=== PATIENT | female | born 1970 | race Two or more races ===

== ENCOUNTER 2016-06-24 20:35 | Emergency (ER) | payer SELFPAY ==
[2016-06-24 20:44] VITALS: BP 128/78; PULSE 80; TEMP 98.4; BMI 22.4
[2016-06-24] MEDS ORDERED: predniSONE 20 MG TABLET (UD) ONE (21:14)
[2016-06-24] MEDS: predniSONE 20 MG TABLET (UD) PO ONE (21:15)
--- NOTE | 2016-06-24 21:15 | PDOC ---
History of Present Illness - General Chief Complaint: Allergic Reaction Stated Complaint: ALLERGIC RX Time Seen by Provider: 06/24/16 20:46 History Source: Patient - History of Present Illness Timing/Duration: reports: other Location: reports: other (trunk and lower exts) Respiratory Risk Factors: reports: no cause identified Past History - Past Medical History Allergies/Adverse Reactions: Allergies Allergy/AdvReac Type Severity Reaction Status Date / Time aspirin Allergy Verified 06/24/16 20:44 Home Medications: Ambulatory Orders Prednisone [Deltasone -] 40 mg PO DAILY #8 tablet 06/24/16 Diabetes: Yes (no medication) - Psycho/Social/Smoking Cessation Hx Suicidal Ideation: No Smoking History: Never smoked Review of Systems - Review of Systems Constitutional: No: Chills, Fever HEENTM: No: Throat Pain Respiratory: No: Shortness of Breath, Stridor, Wheezing Integumentary: Yes: Pruritus, Rash *Physical Exam - Vital Signs Last Vital Signs Temp Pulse Resp BP Pulse Ox 98.4 F 80 18 128/78 99 06/24/16 20:39 06/24/16 20:39 06/24/16 20:39 06/24/16 20:39 06/24/16 20:39 - Physical Exam General Appearance: Yes: Appropriately Dressed. No: Apparent Distress HEENT: positive: Normal ENT Inspection, Normal Voice, Pharynx Normal. negative : Scleral Icterus (R), Scleral Icterus (L) Neck: positive: Supple Respiratory/Chest: positive: Lungs Clear, Normal Breath Sounds. negative: Respiratory Distress, Stridor, Wheezing Cardiovascular: positive: Regular Rate, S1, S2 Integumentary: positive: Dry, Warm, Hives Neurologic: positive: Fully Oriented, Alert, Normal Mood/Affect Medical Decision Making - Medical Decision Making 06/24/16 21:11 46-year-old female, denies any past medical history, and states only allergy is to aspirin, here with generalized pruritic rash that started 4 days ago. Denies any inciting agents. Has been taking Benadryl with minimal relief. No shortness of breath, tongue swelling or voice changes. Patient well-appearing and stable with hives to trunk and lower extremities mostly. Will add short burst of prednisone at this time. Patient instructed to worsening of symptoms *DC/Admit/Observation/Transfer Diagnosis at time of Disposition: Hives - Discharge Dispostion Disposition: HOME Condition at time of disposition: Good - Prescriptions Prescriptions: Prednisone [Deltasone -] 40 mg PO DAILY #8 tablet - Patient Instructions Printed Discharge Instructions: DI for Hives Additional Instructions: Take prednisone as directed and continue to take benadryl 6 hours as needed for itching Print Language: BULGARIAN
== END 2016-06-24 21:19 | disposition home or self-care (01) ==
LOC: JERFT 20:35
DX: L50.9 Urticaria, unspecified (principal); E11.9 Type 2 diabetes mellitus without complications
CPT/HCPCS: 99281-25

== ENCOUNTER → 2016-07-20 | Emergency (ER) | payer SELFPAY ==
[~2016-07-20] MED LIST: INSULIN REGULAR HUMAN 100 UNITS/ML *VIAL ONE; INSULIN REGULAR HUMAN 100 UNITS/ML *VIAL SQ ONE; SODIUM CHLORIDE 1,000 ML IV ONE
[2016-07-20 10:51] VITALS: PULSE 86; BMI 24.1
--- NOTE | 2016-07-20 11:42 | PDOC ---
History of Present Illness - General History Source: Patient Exam Limitations: No Limitations - History of Present Illness Initial Comments: 07/20/16 12:47 The patient is a 46 year old female with a significant past medical history of NIDDM (on 850 mg Metformin), who presents to the ER with lightheadedness for a few days. Patient states she did not take her Metformin medication for the past two days secondary to an upset stomach. [place] here [place] a [place]. She does not have a sugar monitor at home and reports her last measured blood sugar level was 243. For the past two weeks, patient noticed she has been getting dry, scaly skin. She states she had a sugar level of 500 two months ago. Patient has an appointment tomorrow to [facility] where she plans to manage her diabetes. Denies dryness of mouth Denies urinary frequency, urgency, dysuria Denies headache Denies vision changes Denies fever, chills, cough Denies nausea, vomiting <Prerna Marshall - Last Filed: 07/20/16 12:47> <Cisco Armstrong - Last Filed: 07/20/16 13:26> - General Chief Complaint: Blood Sugar Problem Stated Complaint: HIGH SUGAR, DIZZINESS Time Seen by Provider: 07/20/16 11:40 Past History <Prerna Marshall - Last Filed: 07/20/16 12:47> - Past Medical History Diabetes: Yes - Psycho/Social/Smoking Cessation Hx Anxiety: No Suicidal Ideation: No Smoking History: Never smoked Have you smoked in the past 12 months: No Information on smoking cessation initiated: No Hx Alcohol Use: No Drug/Substance Use Hx: No Substance Use Type: None <Cisco Armstrong - Last Filed: 07/20/16 13:26> - Past Medical History Allergies/Adverse Reactions: Allergies Allergy/AdvReac Type Severity Reaction Status Date / Time aspirin Allergy Itching Verified 07/20/16 10:48 ibuprofen Allergy Hives Verified 07/20/16 10:48 Home Medications: Ambulatory Orders Metformin HCl [Glucophage -] 850 mg PO DAILY@0700 07/20/16 Review of Systems - Review of Systems Able to Perform ROS?: Yes Comments:: 07/20/16 12:49 CONSTITUTIONAL: Present: Lightheadedness Absent: fever, no chills, no fatigue EYES: Absent: visual changes ENT: Absent: ear pain, no sore throat CARDIOVASCULAR: Absent: chest pain, no palpitations RESPIRATORY: Absent: cough, no SOB GI: Absent: abdominal pain, no nausea, no vomiting, no constipation, no diarrhea GENITOURINARY: Absent: dysuria, no frequency, no hematuria MUSCULOSKELETAL: Absent: back pain, no arthralgia, no myalgia SKIN: Present: Dry, scaly skin NEURO: Absent: headache <Ncjean paulPrerna - Last Filed: 07/20/16 12:47> - Review of Systems Constitutional: No: Chills, Fever HEENTM: No: Throat Swelling Respiratory: No: Cough, Shortness of Breath Cardiac (ROS): No: Chest Pain ABD/GI: No: Diarrhea, Vomiting Endocrine: No: Excessive Sweating, Increased Thirst, Unexplained Weight Gain, Unexplained Weight Loss All Other Systems: Reviewed and Negative <Cisco Armstrong - Last Filed: 07/20/16 13:26> *Physical Exam - Vital Signs Last Vital Signs Temp Pulse Resp BP Pulse Ox 98 F 86 18 130/70 98 07/20/16 11:41 07/20/16 10:49 07/20/16 11:41 07/20/16 12:10 07/20/16 11:41 - Physical Exam Comments: 07/20/16 12:49 GENERAL: The patient is awake, alert, and fully oriented, in no acute distress. HEAD:Normal with no signs of trauma. NECK: Moist mucosa. EYES: Pupils equal, round and reactive to light, extraocular movements intact, sclera anicteric, conjunctiva clear. EXTREMITIES: Normal range of motion, no edema. NEUROLOGICAL: Normal speech, normal gait. PSYCH: Normal mood, normal affect. SKIN: Dry skin. Warm, normal turgor, no rashes or lesions noted. <[facility] - Last Filed: 07/20/16 12:47> - Vital Signs Last Vital Signs Temp Pulse Resp BP Pulse Ox 97.7 F 86 18 125/74 100 07/20/16 10:49 07/20/16 10:49 07/20/16 10:49 07/20/16 10:49 07/20/16 10:49 <Cisco Armstrong - Last Filed: 07/20/16 13:26> ED Treatment Course - LABORATORY CBC & Chemistry Diagram: 07/20/16 11:56 07/20/16 11:56 - ADDITIONAL ORDERS Additional order review: Laboratory Results 07/20/16 07/20/16 07/20/16 12:15 12:00 11:56 VBG pH 7.36 POC VBG pCO2 52.9 H POC VBG pO2 21.6 L Mixed VBG HCO3 29.2 H Sodium 135 L Potassium 4.7 Chloride 94 L Carbon Dioxide 30 Anion Gap 11 BUN 18 Creatinine 0.6 Creat Clearance w eGFR > 60 POC Glucometer Random Glucose 296 H Calcium 9.8 Magnesium 2.2 Total Bilirubin 0.7 AST 28 ALT 41 Alkaline Phosphatase 96 Total Protein 8.3 H Albumin 4.3 Urine HCG, Qual Negative 07/20/16 11:50 VBG pH POC VBG pCO2 POC VBG pO2 Mixed VBG HCO3 Sodium Potassium Chloride Carbon Dioxide Anion Gap BUN Creatinine Creat Clearance w eGFR POC Glucometer [phone] Random Glucose Calcium Magnesium Total Bilirubin AST ALT Alkaline Phosphatase Total Protein Albumin Urine HCG, Qual 07/20/16 07/20/16 11:56 11:50 RBC 5.35 H MCV 85.2 MCHC 34.0 RDW 12.6 MPV 8.3 Neutrophils % 41.6 L Lymphocytes % 50.6 H Monocytes % 5.7 Eosinophils % 1.3 Basophils % 0.8 POC Glucometer [phone] - Medications Given in the ED: ED Medications Discontinued Medications Generic Name Dose Route Start Last Admin Trade Name Freq PRN Reason Stop Dose Admin Sodium Chloride 1,000 mls @ 1,000 mls/hr 07/20/16 11:41 07/20/16 12:10 Normal Saline - IV 07/20/16 12:40 1,000 mls/hr ONCE ONE Administration Insulin Human Regular 4 units 07/20/16 11:41 07/20/16 12:15 Novolin R Vial *For Ivpush Or Iv Drip Only* SQ 07/20/16 11:42 4 units ONCE ONE Administration <Prerna Marshall - Last Filed: 07/20/16 12:47> - LABORATORY CBC & Chemistry Diagram: 07/20/16 11:56 07/20/16 11:56 <Cisco Armstrong - Last Filed: 07/20/16 13:26> Medical Decision Making - Medical Decision Making 07/20/16 11:59 A portion of this note was documented by scribe services under my direction. I have reviewed the details of the note, within reason, and agree with the documentation with the following case summary and management plan written by me. 46-year-old female with history of diabetes on metformin presents for evaluation of elevated glucose despite compliance with her metformin. Patient states that over the last few months she has had random glucose checks in the 200s despite compliance with her metformin, stopped her metformin 2 days ago (? because of stomach upset), and presents now for lightheadedness for 1 day and dry skin for a few months. No infectious complaints, tolerating normal by mouth, no vomiting or diarrhea, no polyuria or polydipsia. Vital signs normal. Well-appearing, seated in stretcher, playing with a baby at bedside, talking on her cell phone moist mucosa, dry skin abdomen benign 46-year-old female with likely poorly controlled diabetes despite compliance with her metformin. Patient has been [place] the [place] from the [place] for a couple of years, her medications have not been monitored or adjusted, likely leading to this presentation. No other evidence of acute infectious process. Pt has an appt at [facility] tomorrow, but presents today to check on her blood sugar. Low clinical suspician for DKA. labs including acetone UA IVF, insulin reassess 07/20/16 12:46 Glucose 296 but normal anion gap, normal electrolytes, no leukocytosis. Receiving IVF and insulin. Will dispo once IVF complete to [facility] f/u tomorrow. 07/20/16 13:23 UA without infection, acetone negative. Received 1L NS, tolerating PO, continues to feel well, agree with d/c plan to [facility] tomorrow. <Cisco Armstrong - Last Filed: 07/20/16 13:26> *DC/Admit/Observation/Transfer - Attestations Scribe Attestion: 07/20/16 13:01 Documentation prepared by Prerna Marshall, acting as medical management trainer for Cisco Armstrong MD. <Prerna Marshall - Last Filed: 07/20/16 12:47> <Cisco Armstrong - Last Filed: 07/20/16 13:26> Diagnosis at time of Disposition: Elevated glucose - Discharge Dispostion Disposition: HOME Condition at time of disposition: Stable - Referrals Referrals: Alberto Gruber [Other] - Patient Instructions Printed Discharge Instructions: DI for Hyperglycemia -- Adult Additional Instructions: Activity as tolerated. Stay well hydrated. Blood tests show a slightly high sugar level but no other complications. Continue your medications as previously prescribed by your physician. You should follow up with [facility] T[facility]ROW regarding today's emergency department visit. Return to the emergency department for any new or concerning symptoms, particularly fevers or chills, vomiting or confusion, severe abdominal pain.
[2016-07-20 11:43] VITALS: TEMP 98
[2016-07-20 12:08] LABS: BASOPHIL 0.8 % (0-2.0); EOSINOPHIL 1.3 % (0-4.5); MEAN CELL VOLUME 85.2 fl (80-96); MEAN PLT VOLUME 8.3 fl (7.5-11.1); NEUTROPHILS 41.6 % (42.8-82.8); PLATELET COUNT 405 K/MM3 (134-434); RDW 12.6 % (11.6-15.6); WHITE BLOOD COUNT 6.1 K/mm3 (4.0-10.0)
[2016-07-20 12:11] VITALS: BP 130/70
[2016-07-20 12:29] LABS: VENOUS PH 7.36 (7.32-7.42)
[2016-07-20 12:31] LABS: ALBUMIN 4.3 g/dl (3.4-5.0); ALK PHOS 96 U/L (45-117); ANION GAP 11 (8-16); BILIRUBIN,TOTAL 0.7 mg/dL (0.2-1.0); CALCIUM 9.8 mg/dL (8.5-10.1); CO2 30 mmol/L (21-32); COCKROFT - GAULT 121.6435; CREATININE 0.6 mg/dL (0.55-1.02); GLUCOSE,RANDOM 296 mg/dL (74-106); MAGNESIUM 2.2 mg/dL (1.8-2.4); SGOT/AST 28 U/L (15-37); SGPT/ALT 41 U/L (12-78); TOT PROT 8.3 g/dl (6.4-8.2)
[2016-07-20 12:32] LABS: VENOUS BLOOD GAS HCO3 29.2 meq/L (19-25)
[2016-07-20 12:44] LABS: URINE APPEARANCE CLEAR; URINE BILIRUBIN NEGATIVE (NEGATIVE); URINE BLOOD NEGATIVE (NEGATIVE); URINE COLOR STRAW; URINE GLUCOSE (UA) 3+ (NEGATIVE); URINE KETONE NEGATIVE (NEGATIVE); URINE LEUK ESTERASE NEGATIVE (NEGATIVE); URINE NITRITE NEGATIVE (NEGATIVE); URINE PROTEIN NEGATIVE (NEGATIVE); URINE UROBILINOGEN NEGATIVE E.U./dl (0.2-1.0)
[2016-07-20 13:00] LABS: ACETONE SERUM NEGATIVE (NEGATIVE)
== END | disposition home or self-care (01) ==
LOC: JER 10:44
PROC: 3E0337Z Introduction of Electrolytic and Water Balance Substance into Peripheral Vein, Percutaneous Approach (ICD-10-PCS; principal; 2016-07-20)
PROC: 3E013VG Introduction of Insulin into Subcutaneous Tissue, Percutaneous Approach (ICD-10-PCS; 2016-07-20)
DX: E11.65 Type 2 diabetes mellitus with hyperglycemia (principal); Z79.84 Long term (current) use of oral hypoglycemic drugs
CPT/HCPCS: 36415; 80053; 81003; 82009; 82803; 83735; 84703; 85025; 99283-25

== ENCOUNTER 2016-09-03 21:39 | Emergency (ER) | payer SELFPAY ==
[2016-09-03 22:04] VITALS: BP 127/76; PULSE 77; TEMP 98.1; BMI 23.8
[2016-09-03] MEDS ORDERED: ACETAMINOPHEN 325 MG TABLET (FP) PO ONE (22:39)
--- NOTE | 2016-09-03 22:40 | PDOC ---
History of Present Illness - General Chief Complaint: Pain Stated Complaint: PAIN Time Seen by Provider: 09/03/16 22:15 History Source: Patient Exam Limitations: No Limitations - History of Present Illness Initial Comments: 09/03/16 22:49 46y F hx of DM presents with comnpalint of hand pain and foot pain. Pt states she has had pain in her feet that is burning in nature for the past 4 days. She also endorses some soreness in her hands. No recent trauma, injuries, falls, neck pain, back pain, urinary or bowel in contienence, fever/chills, dirarhea, melena, bpr, dysuria. no prior history of pain/neuropathy. Past History - Past Medical History Allergies/Adverse Reactions: Allergies Allergy/AdvReac Type Severity Reaction Status Date / Time aspirin Allergy Itching Verified 09/03/16 21:57 diclofenac Allergy Hives Verified 09/03/16 21:57 ibuprofen Allergy Hives Verified 09/03/16 21:57 Home Medications: Ambulatory Orders Metformin HCl [Glucophage -] 850 mg PO DAILY@0700 07/20/16 Diabetes: Yes - Psycho/Social/Smoking Cessation Hx Anxiety: No Suicidal Ideation: No Smoking History: Never smoked Have you smoked in the past 12 months: No Information on smoking cessation initiated: No Hx Alcohol Use: No Drug/Substance Use Hx: No Substance Use Type: None Review of Systems - Review of Systems Able to Perform ROS?: Yes Comments:: 09/03/16 22:51 Constitutional - no reported Fever, Chills, HEENT: no reported vision changes, sore throat Respiratory: no reported cough, sob, hemoptysis Cardiac: no reported chest pain, palpitations, light headedness, leg swelling Abd/GI: no reported abd pain, nausea, vomiting, blood per rectum, melena, diarrhea : no reported dysuria, frequency, discharge Musculskelatal - +hand pain, +foot pain no reported back pain, joint swelling skin - no reported bruising, erythema, rash neurological: no reported headache, numbness, focal weakness, tingling, ataxia, hematologic: no reported anemia, easy bruising, easy bleeding GENERAL: The patient is awake, alert, and fully oriented, Nontoxic - in no acute distress. HEAD: Normocephalic, atraumatic. EYES: extraocular movements intact, sclera anicteric, conjunctiva clear. ENT: Normal voice, Moist mucous membranes. NECK: Normal range of motion, supple LUNGS: Breath sounds equal, clear to auscultation bilaterally. No wheezes, no rhonchi, no rales. HEART: Regular rate and rhythm, normal S1 and S2 without murmur, rub or gallop. ABDOMEN: Soft, nontender, normoactive bowel sounds. No guarding, no rebound. . No CVA tenderness EXTREMITIES: Normal range of motion, no edema. No clubbing or cyanosis. No cords, erythema, or tenderness. NEUROLOGICAL: No facial assymetry, Normal speech, sensation intact throughout, motor function intact thoughout. PSYCH: Normal mood, normal affect. SKIN: Warm, Dry, normal turgor, *Physical Exam - Vital Signs Last Vital Signs Temp Pulse Resp BP Pulse Ox 98.1 F 77 18 127/76 99 09/03/16 21:57 09/03/16 21:57 09/03/16 21:57 09/03/16 21:57 09/03/16 21:57 Medical Decision Making - Medical Decision Making 09/03/16 22:53 suspect possible neuropathy will have th ept fu with pmd wll givee tylenol for pain I discussed the physical exam findings, ancillary test results and final diagnoses with the patient. I answered all of the patient's questions. The patient was satisfied with the care received and felt comfortable with the discharge plan and treatment plan. The patient will call their primary care physician within 24 hours to arrange follow-up and will return to the Emergency Department with any new, persistent or worsening symptoms. *DC/Admit/Observation/Transfer Diagnosis at time of Disposition: Foot pain Qualifiers: Laterality: bilateral Qualified Code(s): M79.671 - Pain in right foot - Discharge Dispostion Disposition: HOME Condition at time of disposition: Improved Admit: No - Referrals Referrals: Shanthi Robles [Primary Care Provider] - - Patient Instructions Printed Discharge Instructions: DI for Foot Pain Additional Instructions: Your symptoms may be due to neuropathy please follow up with your primary care doctor for evlauation Return to the emergency department immediately with ANY new, persistent or worsening symptoms. You MUST call and follow up with your doctor tomorrow for further evaluation of your symptoms. Results were discussed with you. Please make sure your doctor reviews the results of your emergency evaluation. If you had any xrays during your visit, it was read preliminarily by myself, a Radiologist will review it and if there are any additional findings we will call you.
[2016-09-03] MEDS ORDERED: ACETAMINOPHEN 325 MG TABLET (FP) ONE (22:50)
== END 2016-09-03 23:04 | disposition home or self-care (01) ==
LOC: JER 21:39
DX: M79.671 Pain in right foot (principal); Z79.84 Long term (current) use of oral hypoglycemic drugs; E11.9 Type 2 diabetes mellitus without complications
CPT/HCPCS: 99282-25

== ENCOUNTER 2016-11-05 15:03 | Emergency (ER) | payer SELFPAY ==
[2016-11-05 15:13] VITALS: BMI 20.3
[2016-11-05 19:19] LABS: BASOPHIL 0.8 % (0-2.0); EOSINOPHIL 0.3 % (0-4.5); MCH 28.9 pg (25.7-33.7); MCHC 33.5 g/dl (32.0-36.0); MEAN CELL VOLUME 86.2 fl (80-96); MEAN PLT VOLUME 8.2 fl (7.5-11.1); NEUTROPHILS 59.6 % (42.8-82.8); PLATELET COUNT 492 K/MM3 (134-434); URINE APPEARANCE SLCLOUDY; URINE BILIRUBIN NEGATIVE (NEGATIVE); URINE BLOOD NEGATIVE (NEGATIVE); URINE COLOR YELLOW; URINE GLUCOSE (UA) NEGATIVE (NEGATIVE); URINE KETONE 1+ (NEGATIVE); URINE LEUK ESTERASE NEGATIVE (NEGATIVE); URINE NITRITE NEGATIVE (NEGATIVE); URINE PROTEIN 1+ (NEGATIVE); URINE UROBILINOGEN NEGATIVE mg/dL (0.2-1.0); WHITE BLOOD COUNT 7.5 K/mm3 (4.0-10.0)
[2016-11-05 19:23] LABS: URINE HYALINE CAST 2 /lpf; URINE MUCUS MANY; URINE RBC 1 /hpf (0-3); URINE WBC 1 /hpf (3-5)
[2016-11-05] MEDS ORDERED: SODIUM CHLORIDE 1,000 ML IV STA ×2 (19:52→21:56)
[2016-11-05] MEDS ORDERED: METOCLOPRAMIDE HCL INJECTION 10 MG/2 ML VIAL IVPB ONE (19:52)
[2016-11-05] MEDS ORDERED: METOCLOPRAMIDE HCL INJECTION 10 MG/2 ML VIAL ONE (19:58)
--- NOTE | 2016-11-05 20:23 | PDOC ---
*Physical Exam - Vital Signs Last Vital Signs Temp Pulse Resp BP Pulse Ox 98.0 F 97 H 18 117/73 99 11/05/16 15:10 11/05/16 15:10 11/05/16 15:10 11/05/16 15:10 11/05/16 17:30 ED Treatment Course - LABORATORY CBC & Chemistry Diagram: 11/05/16 18:55 11/05/16 18:55 - ADDITIONAL ORDERS Additional order review: Laboratory Results 11/05/16 18:55 Urine Color Yellow Urine Appearance Slcloudy Urine pH 5.0 Urine Protein 1+ H Urine Glucose (UA) Negative Urine Ketones 1+ H Urine Blood Negative Urine Nitrite Negative Urine Bilirubin Negative Urine Urobilinogen Negative Ur Leukocyte Esterase Negative Urine RBC 1 Urine WBC 1 Ur Epithelial Cells Rare Hyaline Casts 2 Urine Mucus Many 11/05/16 18:55 RBC 4.95 MCV 86.2 MCHC 33.5 RDW 13.0 MPV 8.2 Neutrophils % 59.6 D Lymphocytes % 35.5 D Monocytes % 3.8 Eosinophils % 0.3 Basophils % 0.8 - Medications Given in the ED: ED Medications Discontinued Medications Generic Name Dose Route Start Last Admin Trade Name Freq PRN Reason Stop Dose Admin Metoclopramide HCl 10 mg 11/05/16 19:52 11/05/16 19:55 Reglan Injection - IVPB 11/05/16 19:53 10 mg ONCE ONE Administration Medical Decision Making - Medical Decision Making 11/05/16 20:22 agree with care from JEREMY Horta *DC/Admit/Observation/Transfer Diagnosis at time of Disposition: Dehydration, Nausea & vomiting - Discharge Dispostion Disposition: HOME Condition at time of disposition: Stable - Prescriptions Prescriptions: Famotidine [Pepcid] 40 mg PO BID #14 tablet Metoclopramide HCl [Reglan] 10 mg PO Q8H PRN #30 tablet PRN Reason: Nausea - Referrals Referrals: Marivel Sarabia MD [Primary Care Provider] - - Patient Instructions Printed Discharge Instructions: DI for Dehydration -- Adult, DI for Vomiting - - Adult Additional Instructions: Follow up with your primary care provider. Take medications as prescribed. Return if symptoms worsen. Check finger stick at least 3 times a day until symptoms improve. Drink plenty fluid. Call your doctor to be seen tomorrow or early next week. Avoid spicy, greasy foods. Print Language: GREENLANDIC
--- NOTE | 2016-11-05 21:06 | PDOC ---
History of Present Illness - General Chief Complaint: Nausea/Vomiting Stated Complaint: NAUSEA/VOMITING Time Seen by Provider: 11/05/16 19:27 History Source: Patient Exam Limitations: No Limitations - History of Present Illness Initial Comments: 11/05/16 21:00 46yo Female patient w/ PmHx: NIDDM, Peripheral Neuropathy presents to ED c/o vomiting x 2-3 days. Unable to keep fluids or solids down. Patient son states 2 days ago, patient using bathroom and while sitting on toilet, she passed out hitting head against wall. Patient denies seeking medical treatment at that time. She denies any h/a, blurred vision, dizziness, confusion, or any other complaints at this time. Past History - Travel Traveled outside of the country in the last 30 days: No Close contact w/someone who was outside of country & ill: No - Past Medical History Allergies/Adverse Reactions: Allergies Allergy/AdvReac Type Severity Reaction Status Date / Time aspirin Allergy Itching Verified 11/05/16 15:09 diclofenac Allergy Hives Verified 11/05/16 15:09 ibuprofen Allergy Hives Verified 11/05/16 15:09 Home Medications: Ambulatory Orders Metformin HCl [Glucophage -] 850 mg PO DAILY@0700 07/20/16 Famotidine [Pepcid] 40 mg PO BID #14 tablet 11/05/16 Metoclopramide HCl [Reglan] 10 mg PO Q8H PRN #30 tablet 11/05/16 Diabetes: Yes Dialysis: No GI Disorders: No Disorders: No HTN: No Hypercholesterolemia: No HIV: No Kidney Stones: No Liver Disease: No Psychiatric Problems: No Suicide Attempt (Hx): No Seizures: No Thyroid Disease: No Lung CA: No - Immunization History Immunization Up to Date: Yes - Psycho/Social/Smoking Cessation Hx Anxiety: No Suicidal Ideation: No Smoking History: Never smoked Have you smoked in the past 12 months: No Information on smoking cessation initiated: No Hx Alcohol Use: No Drug/Substance Use Hx: No Substance Use Type: None Review of Systems - Review of Systems Able to Perform ROS?: Yes Is the patient limited [place] proficient: Yes Constitutional: No: Chills, Fever Respiratory: No: Cough, Stridor, Wheezing Cardiac (ROS): No: Chest Pain, Syncope, Chest Tightness ABD/GI: Yes: Nausea, Poor Fluid Intake, Vomiting. No: Constipated, Diarrhea, Poor Appetite, Rectal Bleeding, Abdominal cramping : No: Burning, Dysuria, Frequency, Flank Pain, Hematuria, Pain, Urgency Musculoskeletal: No: Back Pain, Muscle Weakness Integumentary: No: Bruising, Dryness, Erythema, Rash, Sweating Neurological: No: Headache, Numbness, Tingling, Tremors, Unsteady Gait, Ataxia, Dizziness All Other Systems: Reviewed and Negative *Physical Exam - Vital Signs Last Vital Signs Temp Pulse Resp BP Pulse Ox 98.0 F 97 H 18 117/73 99 11/05/16 15:10 11/05/16 15:10 11/05/16 15:10 11/05/16 15:10 11/05/16 17:30 - Physical Exam General Appearance: Yes: Nourished, Appropriately Dressed. No: Apparent Distress, Mild Distress, Moderate Distress, Severe Distress Neck: positive: Trachea midline, Supple. negative: Lymphadenopathy (R), Lymphadenopathy (L) Respiratory/Chest: positive: Lungs Clear, Normal Breath Sounds. negative: Chest Tender, Respiratory Distress, Accessory Muscle Use, Labored Respiration, Rapid RR, Stridor, Wheezing Cardiovascular: positive: Regular Rhythm, Regular Rate Gastrointestinal/Abdominal: positive: Normal Bowel Sounds, Soft. negative: Distended, Guarding, Rebound, Tenderness Musculoskeletal: positive: Normal Inspection. 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 Hr-91 QRS 70ms LA interval 142ms ED Treatment Course - LABORATORY CBC & Chemistry Diagram: 11/05/16 18:55 11/05/16 18:55 - ADDITIONAL ORDERS Additional order review: Laboratory Results 11/05/16 18:55 Urine Color Yellow Urine Appearance Slcloudy Urine pH 5.0 Urine Protein 1+ H Urine Glucose (UA) Negative Urine Ketones 1+ H Urine Blood Negative Urine Nitrite Negative Urine Bilirubin Negative Urine Urobilinogen Negative Ur Leukocyte Esterase Negative Urine RBC 1 Urine WBC 1 Ur Epithelial Cells Rare Hyaline Casts 2 Urine Mucus Many 11/05/16 18:55 RBC 4.95 MCV 86.2 MCHC 33.5 RDW 13.0 MPV 8.2 Neutrophils % 59.6 D Lymphocytes % 35.5 D Monocytes % 3.8 Eosinophils % 0.3 Basophils % 0.8 - RADIOLOGY Radiology Studies Ordered: Category Date Time Status HEAD CT WITHOUT CONTRAST [CT] Stat CT Scan 11/05/16 19:52 Taken CHEST PA & LAT [RAD] Stat Radiology 11/05/16 19:52 Ordered - Medications Given in the ED: ED Medications Discontinued Medications Generic Name Dose Route Start Last Admin Trade Name Freq PRN Reason Stop Dose Admin Sodium Chloride 1,000 mls @ 1,000 mls/hr 11/05/16 19:52 11/05/16 19:55 Normal Saline - IV 11/05/16 20:51 1,000 mls/hr ASDIR STA Administration Metoclopramide HCl 10 mg 11/05/16 19:52 11/05/16 19:55 Reglan Injection - IVPB 11/05/16 19:53 10 mg ONCE ONE Administration Medical Decision Making - Medical Decision Making 11/05/16 22:13 Patient reports feeling much better and is requesting to go home. No vomiting or abdominal pain reported. *DC/Admit/Observation/Transfer Diagnosis at time of Disposition: Dehydration Nausea & vomiting Qualifiers: Vomiting type: unspecified Vomiting Intractability: non-intractable Qualified Code(s): R11.2 - Nausea with vomiting, unspecified - Discharge Dispostion Disposition: HOME Condition at time of disposition: Improved Admit: No - Prescriptions Prescriptions: Famotidine [Pepcid] 40 mg PO BID #14 tablet Metoclopramide HCl [Reglan] 10 mg PO Q8H PRN #30 tablet PRN Reason: Nausea - Patient Instructions Printed Discharge Instructions: DI for Vomiting -- Adult, DI for Dehydration - - Adult Additional Instructions: Follow up with your primary care provider. Take medications as prescribed. Return if symptoms worsen. Check finger stick at least 3 times a day until symptoms improve. Drink plenty fluid. Call your doctor to be seen tomorrow or early next week. Avoid spicy, greasy foods. Print Language: CITIZEN OF [place]
[2016-11-05 21:17] LABS: ALBUMIN 4.3 g/dl (3.4-5.0); ANION GAP 9 (8-16); CALCIUM 10.3 mg/dL (8.5-10.1); CO2 28 mmol/L (21-32); GLUCOSE,RANDOM 120 mg/dL (74-106)
[2016-11-05 21:20] LABS: ALK PHOS 74 U/L (45-117); BILIRUBIN,TOTAL 0.9 mg/dL (0.2-1.0); CREATININE 0.7 mg/dL (0.55-1.02); SGOT/AST 16 U/L (15-37); SGPT/ALT 24 U/L (12-78); TOT PROT 8.8 g/dl (6.4-8.2)
[2016-11-05 22:37] VITALS: BP 110/78; PULSE 74; TEMP 98.4
--- NOTE | 2016-11-06 12:25 | EKG ---
Test Reason : Blood Pressure : / mmHG Vent. Rate : 091 BPM Atrial Rate : 091 BPM P-R Int : 142 ms QRS Dur : 070 ms QT Int : 382 ms P-R-T Axes : 065 040 045 degrees QTc Int : 469 ms NORMAL SINUS RHYTHM T WAVE ABNORMALITY, CONSIDER ANTERIOR ISCHEMIA PROLONGED QT ABNORMAL ECG NO PREVIOUS ECGS AVAILABLE Confirmed by MD FE, MISHA ([id number]) on 11/06/2016 12:25:29 PM Referred By: Confirmed By:MISHA MIRAMONTES MD
== END 2016-11-05 23:00 | disposition home or self-care (01) ==
LOC: JER 15:03
PROC: 3E033GC Introduction of Other Therapeutic Substance into Peripheral Vein, Percutaneous Approach (ICD-10-PCS; principal; 2016-11-05)
PROC: 3E0337Z Introduction of Electrolytic and Water Balance Substance into Peripheral Vein, Percutaneous Approach (ICD-10-PCS; 2016-11-05)
DX: R11.2 Nausea with vomiting, unspecified (principal)
CPT/HCPCS: 36415; 70450-TC; 71020-TC; 80053; 81003; 81015; 85025; 93005; 93010; 99283-25